=== PATIENT | female | born 1990 | race Caucasian/White ===

== ENCOUNTER 2017-01-06 20:04 | Inpatient (IN) | payer OTHER ==
[~2017-01-06] VITALS: Ht 162.6 cm; Wt 64.0 kg
[~2017-01-06 20:04] MED LIST: ENDOCET 5-3251 EACH PO; IBUPROFEN800 MG PO; MOTRIN800 MG PO; Motrin PO; NATALCARE RX1 TABLET PO; PERCOCET 5/31 TABLET PO; Percocet 5/325,Endoc PO
[2017-01-06 20:29] VITALS: BP 128/76
[2017-01-06] MEDS ORDERED: PRENATAL TABLE1 EAC3 PO (20:47)
[2017-01-06 21:08] LABS: EOSINOPHIL (%) 0.5 % (0-5); HEMATOCRIT 33.9 % (36.0-46.0); IMMATURE GRANULOCYTE (%) 0.7 % (0.0-0.7); IMMATURE GRANULOCYTE COUNT 0.1 K/uL; INSTRUMENT ABS NEUTROPHIL CT 6.2 K/uL; LYMPHOCYTE COUNT 1.8 K/uL (1.0-2.8); MCH 30.9 PG (29.0-34.0); MCHC 35.7 G/DL (30.0-36.0); MCV 86.5 FL (83-99); MEAN PLAT.VOLUME 10.3 uM^3 (9.5-12.4); MONOCYTE (%) 7.3 % (3-12); MONOCYTE COUNT 0.6 K/uL (0-0.8); NEUTROPHIL (%) 70.4 % (45-76); NEUTROPHIL COUNT 6.2 K/uL (1.8-6.4); PLATELET COUNT 153 K/uL (156-360); RBC DIS.WIDTH-CV 13.9 % (11.8-14.6); RBC DIS.WIDTH-SD 42.5 % (39-53); RED BLOOD COUNT 3.92 M/uL (3.80-5.20); WHITE BLOOD COUNT 8.8 K/uL (4.1-10.2)
[2017-01-06 21:52] VITALS: BP 104/65
[2017-01-06 22:57] VITALS: BP 108/63
[2017-01-06 23:40] VITALS: BP 117/75
[2017-01-06 23:53] VITALS: BP 108/66
[2017-01-07] VITALS (15 sets, daily range): BP systolic 99–116; BP diastolic 55–73
[2017-01-07] MEDS ORDERED: IBUPROFEN800 MG PO (04:18)
[2017-01-08 07:54] VITALS: BP 103/61
[2017-01-08 16:07] VITALS: BP 119/76
[2017-01-08 16:18] VITALS: BP 113/70
== END 2017-01-08 18:27 | disposition home or self-care (01) | DRG 775 ==
LOC: LDRP-OP 20:04 → 2WEST 20:05 → LDRP-OP 01-31 13:29
PROVIDERS: Advanced Practice Midwife
PROC: 3E0S3CZ (ICD-10-PCS; principal; 2017-01-06)
PROC: 00HU33Z Insertion of Infusion Device into Spinal Canal, Percutaneous Approach (ICD-10-PCS; principal; 2017-01-06)
PROC: 10907ZC Drainage of Amniotic Fluid, Therapeutic from Products of Conception, Via Natural or Artificial Opening (ICD-10-PCS; 2017-01-07)
PROC: 10E0XZZ Delivery of Products of Conception, External Approach (ICD-10-PCS; 2017-01-07)
DX: O99.824 Streptococcus B carrier state complicating childbirth (principal); Z37.0 Single live birth; Z3A.40 40 weeks gestation of pregnancy; O77.0 Labor and delivery complicated by meconium in amniotic fluid
CPT/HCPCS: 85025; C1755; G0378; J2540; J3010; J7120

== ENCOUNTER 2017-03-05 09:14 | Day surgery (SDC) | payer OTHER ==
[~2017-03-05] VITALS: Ht 162.6 cm; Wt 56.7 kg
[~2017-03-05 09:14] MED LIST changes: +PRENATAL TABLE1 EAC3 PO
[2017-03-05] MEDS ORDERED: IBUPROFEN800 MG PO (11:05)
[2017-03-05] MEDS ORDERED: HYDROCODON-ACE1 EAC7 PO (11:05)
[2017-03-05 12:15] VITALS: BP 115/65
[2017-03-05 13:07] VITALS: BP 111/59
== END 2017-03-05 13:20 | disposition home or self-care (01) ==
LOC: SDC 09:14
PROC: 0UB74ZZ Excision of Bilateral Fallopian Tubes, Percutaneous Endoscopic Approach (ICD-10-PCS; principal; 2017-03-05)
DX: Z30.2 Encounter for sterilization (principal)
CPT/HCPCS: 88302; J0330; J0690; J1100; J1885; J2175; J2250; J2405; J2710; J3010